=== PATIENT | female | born 1950 | race Caucasian/White ===

== ENCOUNTER 2017-12-06 14:15 | Outpatient (RCR) | payer MEDICARE, OTHER | END 2018-01-04 | disposition home or self-care (01) | LOC: PTY 14:15 | DX: M79.672 Pain in left foot (principal); M20.10 Hallux valgus (acquired), unspecified foot; M20.20 Hallux rigidus, unspecified foot; M25.9 Joint disorder, unspecified; E78.5 Hyperlipidemia, unspecified; Z95.1 Presence of aortocoronary bypass graft; M19.90 Unspecified osteoarthritis, unspecified site; Z90.710 Acquired absence of both cervix and uterus; Z98.1 Arthrodesis status | CPT/HCPCS: 97110; 97140; 97161; G8978; G8979 ==

== ENCOUNTER 2018-01-05 12:30 | Outpatient (RCR) | payer MEDICARE, OTHER | END 2018-02-04 | disposition home or self-care (01) | LOC: PTY 12:30 | DX: M79.672 Pain in left foot (principal); M20.10 Hallux valgus (acquired), unspecified foot; M20.20 Hallux rigidus, unspecified foot; M25.9 Joint disorder, unspecified; E78.5 Hyperlipidemia, unspecified; Z95.1 Presence of aortocoronary bypass graft; M19.90 Unspecified osteoarthritis, unspecified site; Z90.710 Acquired absence of both cervix and uterus; Z98.1 Arthrodesis status | CPT/HCPCS: 97035; 97110; 97140; G8978; G8979 ==

== ENCOUNTER 2018-02-09 13:25 | Outpatient (RCR) | payer MEDICARE, OTHER | END 2018-03-06 | disposition home or self-care (01) | LOC: PTY 13:25 | DX: M79.672 Pain in left foot (principal); M20.10 Hallux valgus (acquired), unspecified foot; M20.20 Hallux rigidus, unspecified foot; M25.9 Joint disorder, unspecified; M19.90 Unspecified osteoarthritis, unspecified site; E78.5 Hyperlipidemia, unspecified; Z95.1 Presence of aortocoronary bypass graft; Z90.710 Acquired absence of both cervix and uterus; Z98.1 Arthrodesis status | CPT/HCPCS: 97110; 97140; G8979; G8980 ==

== ENCOUNTER 2018-04-18 14:13 | Outpatient (RCR) | payer MEDICARE, OTHER | END 2018-05-06 | disposition home or self-care (01) | LOC: PTY 14:13 | DX: M16.11 Unilateral primary osteoarthritis, right hip (principal); R26.89 Other abnormalities of gait and mobility; Z98.1 Arthrodesis status | CPT/HCPCS: 97035; 97110; 97140; 97161; G8978; G8979 ==